=== PATIENT | female | born 1965 | race Caucasian/White ===

== ENCOUNTER 2016-11-10 11:49 | Emergency (ER) | payer OTHER | END 2016-11-10 16:59 | disposition home or self-care (01) | LOC: ER 11:49 | DX: R07.81 Pleurodynia (principal); R74.8 Abnormal levels of other serum enzymes; F41.9 Anxiety disorder, unspecified; F17.210 Nicotine dependence, cigarettes, uncomplicated; Z79.899 Other long term (current) drug therapy; Z88.8 Allergy status to other drugs, medicaments and biological substances | CPT/HCPCS: 36415; 96374; 96375; Q9967 ==